=== PATIENT | female | born 1990 | race Caucasian/White ===

== ENCOUNTER 2016-12-26 19:01 | Emergency (ER) | payer BC ==
[~2016-12-26] VITALS: Ht 162.6 cm; Wt 80.3 kg
[2016-12-26] MEDS ORDERED: IV NORMAL SALINE 1000ML BAG 1,000 ML IV ONE (20:00)
[2016-12-26] MEDS ORDERED: ONDANSETRON PF 4 MG/2 ML VIAL. IV ONE (20:00)
[2016-12-26 20:33] LABS: HEMATOCRIT 36.4 % (36.0-47.0); HEMOGLOBIN 12.2 g/dL (12.0-15.5); RED BLOOD COUNT 4.26 x10^6/uL (3.50-5.40); RED CELL DISTRIBUTION WIDTH 12.3 % (11.5-14.5); WHITE BLOOD COUNT 10.5 x10^3/uL (4.0-11.0)
[2016-12-26 20:47] LABS: CREATININE 0.6 mg/dL (0.6-1.0); GFR 122.8; POTASSIUM 3.5 mmol/L (3.5-5.1)
[2016-12-26 20:54] LABS: ALBUMIN 3.4 g/dL (3.4-5.0); ALBUMIN/GLOBULIN RATIO 0.8 (1.0-1.7); TOTAL BILIRUBIN 0.2 mg/dL (0.2-1.0); TOTAL PROTEIN 7.5 g/dL (6.4-8.2)
[2016-12-26 21:09] LABS: OBC FLU VALID
[2016-12-26 21:18] LABS: BILIRUBIN,URINE NEGATIVE (NEG); GLUCOSE,URINE NEGATIVE (NEG); NITRITE,URINE NEGATIVE (NEG); PROTEIN,URINE NEGATIVE (NEG-TRACE); UROBILINOGEN,URINE 0.2 mg/dL (0.2 mg/dL)
--- NOTE | 2016-12-26 21:22 | ED.ADGEN ---
Past Medical History Past Medical History: Other Additional Past Medical Histor: low BG Past Surgical History: No Surgical History Alcohol Use: None Drug Use: None Adult General Chief Complaint Chief Complaint: VOMITING IN HPI HPI Patient is a 26 year old woman, , 16 weeks by dates and ultrasound confirmation, who presents to the emergency department with complaint of low-grade fever, headache, body aches, nausea and vomiting for the past day. 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 She denies any injuries, any syncope, any chest pain, any cough, any rhinorrhea, any shortness of breath. States that she had one other day of emesis similar to this earlier in her . States that she occasional have mild cramps in her abdomen, but is having no belly pain now, no loss of fluid, no bleeding, no discharge or drainage, no concerns for STI exposures. No diarrhea, last bowel was this morning and was normal. Review of Systems Review of Systems Constitutional: Denies fever or chills. [] Eyes: Denies change in visual acuity. [] HENT: Denies nasal congestion or sore throat. [] Respiratory: Denies cough or shortness of breath. [] Cardiovascular: Denies chest pain or edema. [] GI: Denies bloody stools or diarrhea. [] Nausea and vomiting. Occasional abdominal cramping in the pelvic region. : Denies dysuria. [] Musculoskeletal: Body aches. No joint pain. Integument: Denies rash. [] Neurologic: Denies headache, focal weakness or sensory changes. [] Endocrine: Denies polyuria or polydipsia. [] Lymphatic: Denies swollen glands. [] Psychiatric: Denies depression or anxiety. [] Current Medications Current Medications Current Medications Medications (Trade) Dose Ordered Sig/Alfred Start Time Stop Time Status Last Admin Dose Admin Cephalexin HCl (Keflex) 500 mg 1X ONCE 12/26/16 21:45 12/26/16 21:46 DC 12/26/16 21:40 500 MG Ondansetron HCl 4 mg 4 mg 1X ONCE 12/26/16 20:00 12/26/16 20:01 DC 12/26/16 19:59 4 MG Sodium Chloride (Iv Sodium Chloride 0.9% 1000ml Bag) 1,000 ml @ 1,000 mls/hr 1X ONCE 12/26/16 20:00 12/26/16 20:59 DC 12/26/16 19:59 1,000 MLS/HR Allergies Allergies Allergies Coded Allergies Type Severity Reaction Last Updated Verified No Known Drug Allergies 12/26/16 No Physical Exam Physical Exam Constitutional: Well developed, well nourished, no acute distress, patient is slightly pale in appearance. HENT: Normocephalic, atraumatic, bilateral external ears normal, oropharynx moist, no oral exudates, nose normal. [] Eyes: PERRLA, EOMI, conjunctiva normal, no discharge. [] Neck: Normal range of motion, no tenderness, supple, no stridor. [] Cardiovascular:Heart rate regular rhythm, no murmur, S1, S2, no rubs or gallops. No chest or crepitus or tenderness. [] Lungs & Thorax: Bilateral breath sounds clear to auscultation, no wheezing, rhonchi, rales. Abdomen: Bowel sounds normal, soft, no tenderness, no rebound, rigidity, no guarding no masses, no pulsatile masses. [] Skin: Warm, dry, no erythema, no rash. [] Back: No tenderness, no CVA tenderness. [] Extremities: No tenderness, no cyanosis, no clubbing, ROM intact, no edema. Neurologic: Alert and oriented X 3, normal motor function, normal sensory function, no focal deficits noted. [] Psychologic: Affect normal, judgement normal, mood normal. [] Current Patient Data Vital Signs Vital Signs Date Time Temp Pulse Resp B/P Pulse Ox O2 Delivery O2 Flow Rate FiO2 12/26/16 20:55 78 20 115/72 Room Air 12/26/16 19:31 97.9 100 97.9 Lab Values Laboratory Tests Test 12/26/16 19:30 12/26/16 20:12 12/26/16 20:40 12/26/16 21:07 White Blood Count 10.5x10^3/uL (4.0-11.0) Red Blood Count 4.26x10^6/uL (3.50-5.40) Hemoglobin 12.2g/dL (12.0-15.5) Hematocrit 36.4% (36.0-47.0) Mean Corpuscular Volume 86fL (79-100) Mean Corpuscular Hemoglobin 29pg (25-35) Mean Corpuscular Hemoglobin Concent 34g/dL (31-37) Red Cell Distribution Width 12.3% (11.5-14.5) Platelet Count 167x10^3/uL (140-400) Sodium Level 138mmol/L (136-145) Potassium Level 3.5mmol/L (3.5-5.1) Chloride Level 104mmol/L (98-107) Carbon Dioxide Level 23mmol/L (21-32) Anion Gap 11 (6-14) Blood Urea Nitrogen 9mg/dL (7-20) Creatinine 0.6mg/dL (0.6-1.0) Estimated GFR (Cockcroft-Gault) 122.8 BUN/Creatinine Ratio 15 (6-20) Glucose Level 77mg/dL (70-99) Calcium Level 9.0mg/dL (8.5-10.1) Total Bilirubin 0.2mg/dL (0.2-1.0) Aspartate Amino Transferase (AST) 15U/L (15-37) Alanine Aminotransferase (ALT) 22U/L (14-59) Alkaline Phosphatase 69U/L (46-116) Total Protein 7.5g/dL (6.4-8.2) Albumin 3.4g/dL (3.4-5.0) Albumin/Globulin Ratio 0.8 (1.0-1.7) L POC Urine HCG, Qualitative Hcg positive (Negative) Influenza Type A Antigen Negative (NEGATIVE) Influenza Type B Antigen Negative (NEGATIVE) Urine Collection Type Unknown Urine Color Yellow Urine Clarity Clear Urine pH 7.0 Urine Specific [place] 1.015 Urine Protein Negativemg/dL (NEG-TRACE) Urine Glucose (UA) Negativemg/dL (NEG) Urine Ketones (Stick) 40mg/dL (NEG) Urine Blood Negative (NEG) Urine Nitrite Negative (NEG) Urine Bilirubin Negative (NEG) Urine Urobilinogen Dipstick 0.2mg/dL (0.2 mg/dL) Urine Leukocyte Esterase Small (NEG) Urine RBC Occ/HPF (0-2) Urine WBC 5-10/HPF (0-4) Urine Squamous Epithelial Cells Mod/LPF Urine Bacteria Moderate/HPF (0-FEW) Urine Mucus Mod/LPF Laboratory Tests 12/26/16 19:30 Laboratory Tests 12/26/16 19:30 EKG EKG ECG: Sinus rhythm, 90 beats minute, no ectopy. As interpreted by me. Radiology/Procedures Radiology/Procedures Not indicated.] Course & Med Decision Making Course & Med Decision Making Pertinent Labs and Imaging studies reviewed. (See chart for details) heart tones in the 140s, patient denies any lower abdominal pain, or indications for pelvic examination. Patient with no further nausea or vomiting after receiving Zofran IV in the ED. IV fluids infused. Patient's urinalysis reveals ketones, with bacteria, few white blood cells. Laboratory studies are within normal limits, no evidence of electrolyte abnormalities or significant dehydration. On reevaluation patient states that she is feeling much better, is tolerating by mouth fluids in the ED without issue. She states that she is taking Diclegis up to 4 times daily, using Zofran at home, I discussed use of Reglan as a secondary measure as needed. At this time the patient's sprinting of symptoms, and declined additional medications at this point. We will write her prescription for Reglan. Patient states that she's experienced several urinary tract infections during this , as she does have bacteria in the urine, and white blood cells, we'll treat for bacteriuria of , first dose of Keflex given in the ED without issue. Given a 7 day course, culture results will trigger a follow-up phone call if this is not adequate coverage. Patient has an appointment to follow up with her [employer]PERATOR, Dr. Gallagher , tomorrow morning. States she is ready go home at this point, will continue to use home medications and oral fluids, hyperemesis gravidarum diet, follow-up with her OB tomorrow morning, and return to the ED for concerning symptoms as discussed. Dragon Disclaimer Dragon Disclaimer This electronic medical record was generated, in whole or in part, using a voice recognition dictation system. Departure Impression: Primary Impression: Nausea and vomiting Additional Impression: Hyperemesis gravidarum Disposition: 01 HOME, SELF-CARE Condition: IMPROVED Scripts Metoclopramide Hcl (Reglan)10 Mg Tablet1 Tab PO Q6-8HRS PRN NAUSEA #12 TAB Prov:CESAR HILLS DO 12/26/16 Cephalexin (Keflex)500 Mg Capsule1 Cap PO BID #14 CAP Prov:CESAR HILLS DO 3/13/17 Problem Qualifiers CESAR HILLS DO Dec 26, 2016 21:22
[2016-12-26 21:28] LABS: BACTERIA,URINE MODERATE /HPF (0-FEW); RBC,URINE OCC /HPF (0-2); SQUAMOUS EPITHELIAL CELL,UR MOD /LPF
[2016-12-26] MEDS ORDERED: CEPHALEXIN 250 MG CAPSULE PO ONE (21:45)
[2016-12-26] MEDS ORDERED: CEPH-264 PO (21:51)
[2016-12-26] MEDS ORDERED: METO10TA81 PO (21:53)
[2016-12-26 21:55] VITALS: BP 117/72
== END 2016-12-26 22:20 | disposition home or self-care (01) ==
LOC: ER 19:01
DX: O21.0 Mild hyperemesis gravidarum (principal); O26.892 Other specified pregnancy related conditions, second trimester; R51 Headache; R50.9 Fever, unspecified; M79.1 Myalgia; Z3A.16 16 weeks gestation of pregnancy
CPT/HCPCS: 36415; 80053; 81001; 81025; 85027; 87086; 87804; 96361; 96374; 99284; J2405; J7030